=== PATIENT | female | born 1985 | race Caucasian/White ===

== ENCOUNTER 2020-07-25 12:13 | Emergency (ER) | payer OTHER, SELFPAY ==
--- NOTE | ~2020-07-25 | CT_ITS ---
EXAMINATION: CT ABDOMEN AND PELVIS WITHOUT CONTRAST CLINICAL INFORMATION: Severe right-sided flank pain radiating to the right lower quadrant. Vomiting. COMPARISON: 07/09/2015. TECHNIQUE: Multidetector volumetric imaging was performed from the superior aspect of the liver through the pubic symphysis. Sagittal and coronal reformatted images were obtained on the technologist's workstation. This CT examination was performed using dose optimization techniques as appropriate, variously including the following: *Automated exposure control *Adjustment of mA and/or kV according to patient size (this includes techniques or standardized protocols for targeted exams where dose is matched to indication/reason for exam; i.e. extremities or head) *Use of iterative reconstruction technique DLP: 735 mGy-cm FINDINGS: LUNG BASES: The visualized lung bases are unremarkable. LIVER, GALLBLADDER, AND BILIARY TREE: The liver is normal in size, shape, and attenuation. No focal hepatic lesion or biliary ductal dilatation is present. The gallbladder is unremarkable with no evidence of radiopaque gallstones, gallbladder wall thickening, or obvious pericholecystic inflammatory changes. PANCREAS: Unremarkable. SPLEEN: Unremarkable. ADRENAL GLANDS: Unremarkable. KIDNEYS AND URETERS: There is moderate right-sided hydronephrosis and mild hydroureter due to a 4 mm obstructing calculus at the right ureterovesical junction. This calcification has a density of 1108 Hounsfield units. There is mild periureteral fat stranding. No significant perinephric fat stranding. No additional renal or ureteral calculi are identified. Kidneys are normal in size with normal cortical thickness and contour. No lesions are identified on this unenhanced study. BLADDER: Partially filled. Normal wall thickness. No stones GASTROINTESTINAL TRACT: Stomach, small bowel, and colon are normal in caliber. No bowel wall thickening or surrounding inflammatory changes. Intramural fat deposition in the cecum, ascending colon, and transverse colon is a nonspecific finding. Appendix is normal. No intraperitoneal free fluid or free air. ABDOMINAL WALL: Tiny fat-containing umbilical hernia. No bowel involvement. LYMPH NODES: Normal. VASCULAR: Unremarkable. PELVIC VISCERA: Uterus is normal in size. No focal abnormalities are identified. No adnexal lesions. OSSEOUS STRUCTURES: No acute fracture or malalignment. 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 CT/CT abdomen pelvis wo con IMPRESSION: 1. Moderate right-sided hydronephrosis and mild hydroureter due to obstructive uropathy produced by a 4 mm calculus at the right ureterovesical junction. No additional nephrolithiasis. 2. Intramural fat deposition within the majority of the right hemicolon. This has an association with chronic bowel inflammation, though is more often an incidental finding of no clinical significance.
[2020-07-25 12:19] VITALS: BP 147/95; PULSE 52; RESP 18; TEMP 36.5; O2SAT 100; BMI 34.3
[2020-07-25 12:51] LABS: MANUAL DIFF FLAG NO
[2020-07-25] MEDS: 0.9 % Sodium Chloride 1,000 ML 999 ML IVCONT (12:51)
[2020-07-25 12:56] LABS: Basophils Percent Auto 0.4 % (0-2); Eosinophils Absolute Auto 0.2 X10*3/uL (0.0-0.4); Hematocrit 28.7 % (37-47); Hemoglobin 8.2 g/dl (12.0-16.0); Imm Gran Abs Auto 0.02 X10*3/uL (0.00-0.03); Imm Gran Pct Auto 0.3 % (0.0-0.4); Lymphocytes Absolute Auto 1.3 X10*3/uL (1.2-4.9); Lymphocytes Percent Auto 18.3 % (20-40); Mean Corpuscular HGB Conc 28.6 g/dl (31.0-35.0); Mean Corpuscular Hemoglobin 19.2 pg (27.0-33.0); Mean Corpuscular Volume 67.4 fL (80-98); Monocytes Absolute Auto 0.3 X10*3/uL (0.1-1.2); Neutrophils Absolute Auto 5.5 X10*3/uL (2.0-8.3); Platelet Count 384 X10*3/uL (160-400); Red Blood Count 4.26 X10*6/uL (4.20-5.50); Red Cell Distribution Width 17.2 % (11.0-16.0); White Blood Count 7.3 X10*3/uL (4.8-10.8)
--- NOTE | 2020-07-25 12:58 | ED_ITS ---
HPI - Abdominal Pain General Chief Complaint: Back Pain/Injury Stated Complaint: FLANK PAIN Time Seen by Provider: 07/25/20 12:18 Source: patient and EMS Mode of arrival: EMS Limitations: no limitations History of Present Illness HPI narrative: 35 y/o female with history of chronic anemia who presents with acute onset of severe right sided flank pain that started 3 hours [employer] when she was in the car driving to [place]. She told her mother to turn around and go to the hospital at home. Pain is 10/10, sharp in her right flank and radiates to her RLQ. She is on day 3 of her menstrual cycle which she states have been very heavy and with significant pain for a long time. She states the pain usually isnt this bad however. She denies fever, chills. She admits to mild dysuria and can't tell whether or not her urine has blood because of her menstrual flow. She denies history of kidney stones. MD elicited complaint: flank pain Pertinent past history: other (painful periods ) Onset (ago): hour(s) (3) Pain Consistency: colicky Location: R flank Severity: severe Pain scale (0-10): 10 Quality: sharp Radiation: RLQ Exacerbating factors: vomiting and movement Relieving factors: nothing Associated symptoms: nausea, vomiting and diarrhea (2 episodes, non-bloody) Treatments prior to arrival: NSAIDs and other (zofran) Related Data Date of Last Menstrual Period: 07/23/20 Patient : No Previous Rx's Medication Instructions Recorded ibuprofen 600 mg PO Q8H PRN #15 tab 07/25/20 oxycodone 5 mg PO Q6H PRN #5 tab 07/25/20 tamsulosin [Flomax] 0.4 mg PO DAILY #7 cap 07/25/20 Allergies Allergy/AdvReac Type Severity Reaction Status Date / Time Penicillins [PENICILLINS] Allergy Unknown HIVES Verified 07/25/20 12:52 Review of Systems Review of Systems Constitutional: No Fever, No Chills ENT/Mouth: No sore throat, No Rhinorrhea, No Swallowing Difficulty Cardiovascular: No Chest Pain, No SOB, No Orthopnea, No Edema Respiratory: No Cough, No Sputum, No Wheezing, No dyspnea Gastrointestinal: + Nausea, + Vomiting, + Diarrhea, + abdominal Pain, No Hematochezia, No Melena Genitourinary: + Dysuria, No Urinary Frequency, No Hematuria Musculoskeletal: No joint pain, No Myalgias Skin: No Skin Lesions, No rash Neuro: No Weakness, No Numbness, No Dizziness, + Headache Psych: + Anxiety/Panic, No Depression Heme/Lymph: No Bruising, No Lymphadenopathy Endocrine: No Polyuria, No Polydipsia Physical Exam Vital Signs: Vital Signs: Last Vital Signs Temp 97.5 F 07/25/20 16:00 Pulse 66 07/25/20 16:00 Resp 16 07/25/20 16:00 BP 131/86 07/25/20 16:00 Pulse Ox 99 07/25/20 16:00 Body Mass Index 34.3 Appearance: Alert. Oriented X3. No acute distress. Eyes: Pupils equal, round and reactive to light. ENT: Pharynx normal. Neck: Normal inspection. Neck supple. CVS: Normal heart rate and rhythm. Pulses normal. Respiratory: No respiratory distress. Breath sounds normal. Abdomen: Soft with RLQ tenderness. No rebound or guarding. +BS x4, +CVA tenderness on the right. Skin: Skin warm and dry. Normal skin color. Normal skin turgor. No rashes. Extremities: No lower extremity edema. Neuro: Oriented X 3. No motor deficit. No sensory deficit. Course Course Course Narrative: 35 y/o female presenting with acute onset of right sided flank pain, radiating to RLQ associated with vomiting. Concern for kidney stones, possible appendicitis, pyelonephritis, SBO. Will get labs, UA and CT scan for further assessment. Reevaluation(s) Reevaluation #1: CT scan showing moderate hydronephrosis w/ obstructive 4mm stone at UVJ. Case d/w Dr. Cole - patient will most likely pass on her own. Will give IV decadron for ureteral inflammation and Flomax. UA without signs of infection. Patient feels improved with Toradol. Reevaluation #2: Patient is tolerating PO. Her pain remains well controlled. She is stable for d/c with pain control and Urology follow up. Consultations Consultation #1: Urology - [facility] - Abdominal Pain Lab Data Result diagrams: 07/25/20 12:46 07/25/20 12:46 Labs: Lab Results 07/25/20 07/25/20 07/25/20 Range/Units 12:46 12:46 12:46 WBC 7.3 (4.8-10.8) X10*3/uL RBC 4.26 (4.20-5.50) X10*6/uL Hgb 8.2 L (12.0-16.0) g/dl Hct 28.7 L (37-47) % MCV 67.4 L (80-98) fL MCH 19.2 L (27.0-33.0) pg MCHC 28.6 L (31.0-35.0) g/dl RDW 17.2 H (11.0-16.0) % Plt Count 384 (160-400) X10*3/uL MPV 9.0 L (9.4-12.3) fL Immature Gran % (Auto) 0.3 (0.0-0.4) % Neut % (Auto) 75.0 H (45-73) % Lymph % (Auto) 18.3 L (20-40) % [place] % (Auto) 4.0 (2-11) % Eos % (Auto) 2.0 (0-4) % Baso % (Auto) 0.4 (0-2) % Lymph # (Auto) 1.3 (1.2-4.9) X10*3/uL [place] # (Auto) 0.3 (0.1-1.2) X10*3/uL Eos # (Auto) 0.2 (0.0-0.4) X10*3/uL Baso # (Auto) 0.0 (0.0-0.2) X10*3/uL Abs Immat Gran (auto) 0.02 (0.00-0.03) X10*3/uL Absolute Neuts (auto) 5.5 (2.0-8.3) X10*3/uL Absolute Nucleated RBC 0.000 (0.0-0.012) X10*3/uL Nucleated RBC % (auto) 0.0 (0.0-0.2) /100WBC Hold Blue Top SEE NOTE Sodium 138 (135-145) mmol/L Potassium 4.4 (3.3-5.1) mmol/L Chloride 108 (96-108) mmol/L Carbon Dioxide 18 L (22-29) mmol/L Anion Gap 16 (12-20) BUN 16 (9-16) mg/dL Creatinine 0.75 (0.5-1.4) mg/dL Estim Creat Clear Calc 114.2 Estimated GFR > 60 Random Glucose 124 H (60-115) mg/dL Calcium 8.7 (8.4-10.2) mg/dL Magnesium 2.0 (1.6-2.6) mg/dL Total Bilirubin 0.3 (0.0-1.0) mg/dL Direct Bilirubin < 0.2 (0.0-0.5) mg/dL AST 30 (5-31) U/L ALT 12 (0-31) U/L Alkaline Phosphatase 104 (39-117) U/L Total Protein 7.1 (6.5-8.0) g/dL Albumin 3.8 (3.5-5.0) g/dL Lipase 21 (8-78) U/L Urine Color Urine Appearance Urine pH (5.0-8.0) Ur Specific [place] (1.005-1.025) Urine Protein (NEG-TRACE) MG/DL Urine Glucose (UA) (NEG) MG/DL Urine Ketones (NEG) MG/DL Urine Blood (NEG) Urine Nitrite (NEG) Ur Leukocyte Esterase (NEG) Urine RBC (0) /HPF Urine WBC (0-4) /HPF Ur Squamous Epith Cells /LPF Urine Bacteria /LPF Urine Test (NEGATIVE) 07/25/20 07/25/20 Range/Units 15:48 15:48 WBC (4.8-10.8) X10*3/uL RBC (4.20-5.50) X10*6/uL Hgb (12.0-16.0) g/dl Hct (37-47) % MCV (80-98) fL MCH (27.0-33.0) pg MCHC (31.0-35.0) g/dl RDW (11.0-16.0) % Plt Count (160-400) X10*3/uL MPV (9.4-12.3) fL Immature Gran % (Auto) (0.0-0.4) % Neut % (Auto) (45-73) % Lymph % (Auto) (20-40) % [place] % (Auto) (2-11) % Eos % (Auto) (0-4) % Baso % (Auto) (0-2) % Lymph # (Auto) (1.2-4.9) X10*3/uL [place] # (Auto) (0.1-1.2) X10*3/uL Eos # (Auto) (0.0-0.4) X10*3/uL Baso # (Auto) (0.0-0.2) X10*3/uL Abs Immat Gran (auto) (0.00-0.03) X10*3/uL Absolute Neuts (auto) (2.0-8.3) X10*3/uL Absolute Nucleated RBC (0.0-0.012) X10*3/uL Nucleated RBC % (auto) (0.0-0.2) /100WBC Hold Blue Top Sodium (135-145) mmol/L Potassium (3.3-5.1) mmol/L Chloride (96-108) mmol/L Carbon Dioxide (22-29) mmol/L Anion Gap (12-20) BUN (9-16) mg/dL Creatinine (0.5-1.4) mg/dL Estim Creat Clear Calc Estimated GFR Random Glucose (60-115) mg/dL Calcium (8.4-10.2) mg/dL Magnesium (1.6-2.6) mg/dL Total Bilirubin (0.0-1.0) mg/dL Direct Bilirubin (0.0-0.5) mg/dL AST (5-31) U/L ALT (0-31) U/L Alkaline Phosphatase (39-117) U/L Total Protein (6.5-8.0) g/dL Albumin (3.5-5.0) g/dL Lipase (8-78) U/L Urine Color PINK Urine Appearance HAZY Urine pH 6.0 (5.0-8.0) Ur Specific [place] 1.015 (1.005-1.025) Urine Protein TRACE (NEG-TRACE) MG/DL Urine Glucose (UA) NEG (NEG) MG/DL Urine Ketones NEG (NEG) MG/DL Urine Blood 3+ H (NEG) Urine Nitrite NEG (NEG) Ur Leukocyte Esterase NEG (NEG) Urine RBC 15-29 H (0) /HPF Urine WBC 0 (0-4) /HPF Ur Squamous Epith Cells 1+ /LPF Urine Bacteria 1+ /LPF Urine Test NEGATIVE (NEGATIVE) Discharge Plan Discharge Clinical Impression: Hydronephrosis with renal calculous obstruction Patient Disposition: Home, Self-Care Instructions: Kidney Stones (ED) Additional Instructions: Your CT scan showed a kidney stone in the tube that drains your urine from the kidney to the bladder. Is it very close to passing on its own. Recommend increasing your oral hydration, drink plenty of water. Take the prescribed medications as directed. Follow up with Urology next week. If you have recurrent severe pain or persistent vomiting come back to the ER for further evaluation. Prescriptions: New ibuprofen 600 mg tablet 600 mg PO Q8H PRN (Reason: pain) Qty: 15 RF: 0 tamsulosin [Flomax] 0.4 mg capsule 0.4 mg PO DAILY Qty: 7 RF: 0 oxycodone 5 mg tablet 5 mg PO Q6H PRN (Reason: severe pain) Qty: 5 RF: 0 Referrals: Wilman Cole III, MD [Physician] - 2 days (obstructing kidney stone w/ moderate hydronephrosis) [facility] Past Medical History Medical History (Updated 07/25/20 @ 17:20 by DALLAS Almanzar) Anemia Date of Last Menstrual Period: 07/23/20 Social History Social History Advance Directives: No Advance Directives Information Provided: Yes
[2020-07-25] MEDS: Ketorolac Tromethamine 15 MG/ML VIAL IVPUSH (13:28)
[2020-07-25 13:43] LABS: Alanine Aminotransferase 12 U/L (0-31); Albumin Level 3.8 g/dL (3.5-5.0); Alkaline Phosphatase 104 U/L (39-117); Anion Gap 16 (12-20); Aspartate Amino Transferase 30 U/L (5-31); Bilirubin Direct < 0.2 mg/dL (0.0-0.5); Bilirubin Total 0.3 mg/dL (0.0-1.0); Blood Urea Nitrogen 16 mg/dL (9-16); Calcium 8.7 mg/dL (8.4-10.2); Carbon Dioxide 18 mmol/L (22-29); Chloride 108 mmol/L (96-108); Creatinine Clr Calc Pharmacy 114.2; Estimated Glomerular Filt Rate > 60; Glucose Random 124 mg/dL (60-115); Lipase 21 U/L (8-78); Potassium 4.4 mmol/L (3.3-5.1); Sodium 138 mmol/L (135-145); Total Protein 7.1 g/dL (6.5-8.0)
[2020-07-25 15:56] LABS: Appearance Urine HAZY; Color Urine PINK; Glucose Urine UA NEG (NEG); Leukocyte Esterase Urine NEG (NEG); Nitrite Urine NEG (NEG); Specific Gravity - Urine 1.015 (1.005-1.025); Urine Blood 3+ (NEG); Urine Ketones NEG (NEG); Urine Protein TRACE MG/DL (NEG-TRACE)
[2020-07-25 15:57] LABS: UPreg QC Valid YES; Urine Pregnancy NEGATIVE (NEGATIVE)
[2020-07-25 16:00] VITALS: BP 131/86; PULSE 66; RESP 16; TEMP 36.4; O2SAT 99
[2020-07-25 16:02] LABS: Bacteria Urine 1+ /LPF; Squamous Epithelial Cell Urine 1+ /LPF; WBC Urine 0 /HPF (0-4)
[2020-07-25] MEDS: Tamsulosin HCL 0.4 MG CAPSULE PO (16:52)
--- NOTE | 2020-07-25 16:53 | PC.NURSE ---
Pt medicated with IV steroids and po flomax
== END 2020-07-25 17:34 | disposition home or self-care (01) ==
PROVIDERS: Physician Assistant; Emergency Provider Emergency Medicine; PCP Internal Medicine
DX: N13.2 Hydronephrosis with renal and ureteral calculous obstruction (principal)
CPT/HCPCS: 36415; 74176; 80048; 80076; 81001; 81025; 83690; 83735; 85025; 96361; 96374; 96375; 96376; 99284; J1100; J1885

== ENCOUNTER → 2020-08-11 11:52 | Outpatient (BNVA) | payer OTHER, SELFPAY | PROVIDERS: PCP Internal Medicine; Visit Provider Urology ==

== ENCOUNTER 2022-12-08 20:53 | Emergency (ER) | payer OTHER, SELFPAY ==
--- NOTE | ~2022-12-08 | CT_ITS ---
EXAMINATION: CT ABDOMEN AND PELVIS WITHOUT CONTRAST CLINICAL INFORMATION: Right flank pain COMPARISON: 07/25/2020 TECHNIQUE: Multidetector volumetric imaging was performed from the superior aspect of the liver through the pubic symphysis. Sagittal and coronal reformatted images were obtained on the technologist's workstation. This CT examination was performed using dose optimization techniques as appropriate, variously including the following: *Automated exposure control *Adjustment of mA and/or kV according to patient size (this includes techniques or standardized protocols for targeted exams where dose is matched to indication/reason for exam; i.e. extremities or head) *Use of iterative reconstruction technique DLP: 739 mGy-cm FINDINGS: LUNG BASES: The visualized lung bases are unremarkable. LIVER, GALLBLADDER, AND BILIARY TREE: The liver is normal in size, shape, and attenuation. No focal hepatic lesion or biliary ductal dilatation is present. The gallbladder is unremarkable with no evidence of radiopaque gallstones, gallbladder wall thickening, or obvious pericholecystic inflammatory changes. PANCREAS: Unremarkable. SPLEEN: Unremarkable. ADRENAL GLANDS: Unremarkable. KIDNEYS AND URETERS: There is a 2 mm calculus within a right upper renal pole calyx and a punctate 1 mm calculus within a right lower pole calyx. No additional renal calculi identified. No appreciable ureteral calculi. No hydronephrosis or hydroureter. Kidneys are normal in size and contour without focal lesions. No perinephric stranding. BLADDER: Unremarkable. GASTROINTESTINAL TRACT: Stomach, small bowel, and colon are normal in caliber. No bowel wall thickening or surrounding inflammatory changes. Appendix is normal. No intraperitoneal free fluid or free air. Intrarenal fat deposition is again noted within the majority of the right hemicolon, unchanged. ABDOMINAL WALL: No significant hernia is appreciated. LYMPH NODES: Normal. VASCULAR: Unremarkable. PELVIC VISCERA: The uterus appears normal in size. No focal lesions are identified. Adnexa are unremarkable. OSSEOUS STRUCTURES: Minimal osteoarthritis in the hips and SI joints. No acute osseous findings. CT/CT abdomen pelvis wo IV con IMPRESSION: 1. No acute intra-abdominal or intrapelvic abnormalities. 2. Two small nonobstructing right renal calculi. No evidence of obstructive uropathy. Fleischner guidelines were followed.
[2022-12-08 21:12] VITALS: BP 154/100; PULSE 72; RESP 18; TEMP 37.1; O2SAT 99; BMI 34.3
[2022-12-08 21:34] LABS: MANUAL DIFF FLAG NO
[2022-12-08 21:37] LABS: Basophils Percent Auto 0.6 % (0-2); Eosinophils Absolute Auto 0.2 X10*3/uL (0.0-0.4); Eosinophils Percent Auto 3.6 % (0-4); Hematocrit 27.5 % (37.0-47.0); Hemoglobin 7.9 g/dl (12.0-16.0); Imm Gran Abs Auto 0.01 X10*3/uL (0.00-0.03); Imm Gran Pct Auto 0.2 % (0.0-0.4); Lymphocytes Absolute Auto 2.4 X10*3/uL (1.2-4.9); Lymphocytes Percent Auto 45.8 % (20-40); Mean Corpuscular HGB Conc 28.7 g/dl (31.0-35.0); Mean Corpuscular Hemoglobin 17.9 pg (27.0-33.0); Mean Platelet Volume 9.3 fL (9.4-12.3); Monocytes Absolute Auto 0.4 X10*3/uL (0.1-1.2); Neutrophils Absolute Auto 2.3 x10*3/uL (2.0-8.3); Neutrophils Percent Auto 42.8 % (45-73); Platelet Count 393 X10*3/uL (160-400); Red Blood Count 4.41 X10*6/uL (4.20-5.50); Red Cell Distribution Width 18.6 % (11.0-16.0); White Blood Count 5.3 X10*3/uL (4.8-10.8)
[2022-12-08 21:57] LABS: Mean Corpuscular Volume 62.4 fL (80.0-98.0)
[2022-12-08 22:08] LABS: Alanine Aminotransferase 9 U/L (0-31); Albumin Level 3.7 g/dL (3.5-5.0); Alkaline Phosphatase 95 U/L (39-117); Anion Gap 9 (12-20); Aspartate Amino Transferase 18 U/L (5-31); Bilirubin Total 0.2 mg/dL (0.0-1.0); Blood Urea Nitrogen 12 mg/dL (9-16); Calcium 9.5 mg/dL (8.4-10.2); Carbon Dioxide 23 mmol/L (22-29); Chloride 112 mmol/L (96-108); Glucose Random 104 mg/dL (60-115); Potassium 3.6 mmol/L (3.3-5.1); Sodium 140 mmol/L (135-145); Total Protein 6.9 g/dL (6.5-8.0)
[2022-12-08 22:27] VITALS: BP 162/91; PULSE 57; RESP 16; TEMP 36.8; O2SAT 100
[2022-12-08 22:32] LABS: Creatinine Clr Calc Pharmacy 131.2; Estimated Glomerular Filt Rate > 60
[2022-12-08 22:56] LABS: Appearance Urine Clear; Color Urine Yellow; Glucose Urine UA Negative (Negative); Leukocyte Esterase Urine Negative (Negative); Nitrite Urine Negative (Negative); UMIC TRIGGER UACC YES; Urine Blood Large (3+) (Negative); Urine Ketones Negative (Negative); Urine Protein Trace mg/dL (Neg-Trace)
[2022-12-08 22:57] LABS: UPreg QC Valid YES; Urine Pregnancy NEGATIVE (NEGATIVE)
[2022-12-08 23:01] LABS: Bacteria Urine None Seen (None Seen); Hyaline Casts Urine 0-2 /LPF (0-2); Squamous Epithelial Cell Urine 0-2 /HPF (0-2); WBC Urine 0-5 /HPF (0-5)
--- NOTE | 2022-12-08 23:58 | ED.GENADULT ---
[facility] - General Adult General Chief complaint: Abdominal Pain Stated complaint: right sided flank pain Time Seen by Provider: 12/08/22 22:31 Source: patient Mode of arrival: ambulatory History of Present Illness HPI narrative: 37-year-old female presents with complaints of right-sided posterior pain for 1 month that has not been associated with fever, chills, nausea, vomiting. Patient is concerned that she may have hematuria but then reports that she may be having her menstrual cycle. Related Data Previous Rx's Medication Instructions Recorded ibuprofen 600 mg tablet 600 mg PO Q8H PRN pain #15 tabs 07/25/20 oxycodone 5 mg tablet 5 mg PO Q6H PRN severe pain #5 tabs 07/25/20 tamsulosin 0.4 mg capsule (Flomax) 0.4 mg PO DAILY #7 caps 07/25/20 Allergies Allergy/AdvReac Type Severity Reaction Status Date / Time Penicillins [PENICILLINS] Allergy Unknown HIVES Verified 08/11/20 11:26 Review of Systems Review of Systems: Pertinent positives and negatives as stated in [facility] Past Medical History Source: nursing notes reviewed Medical History (Updated 12/09/22 @ 01:19 by Michelle Romero MD) Anemia Social History Social History Advance Directives: No Advance Directives Information Provided: No Physical Exam ED Vital Signs: Vital Signs - 24 hr 12/08/22 21:12 12/08/22 22:27 12/09/22 00:00 Temperature 98.7 F 98.3 F 98.2 F Pulse Rate 72 57 65 Respiratory Rate 18 16 18 Blood Pressure 154/100 H 162/91 H 168/94 H Pulse Oximetry 99 100 100 Oxygen Delivery Method Room Air Room Air Room Air BMI result Body Mass Index 34.3 VITAL SIGNS: Reviewed. GENERAL: Well developed, well nourished, in no acute distress. HEAD: Normocephalic/atraumatic EYES: PERRLA, EOMI EARS: Ext canals without abnormality NOSE: Nares patent bilateral OROPHARYNX: no oral lesions noted, posterior pharynx clear NECK: Supple, no adenopathy LUNGS: Normal breath sounds. No adventitious sounds or accessory muscle use. SpO2<100> CARDIOVASCULAR: Regular rate and rhythm without noted murmurs ABDOMEN: Soft, non-tender specifically no tenderness to palpation the right upper quadrant or epigastric, non-distended with bowel sounds, no CVA tenderness. MUSCULOSKELETAL: No tenderness, deformities, or effusions noted on gross inspection. EXTREMITIES: No cyanosis, clubbing or edema. SKIN: Inspection of the skin reveals no rashes NEUROLOGIC: Alert and oriented x 4. Strength and sensation to light touch were grossly intact x 4. Medications Administered Discontinued Medications Generic Name Dose Route Start Last Admin Trade Name Hugo PRN Reason Stop Dose Admin Acetaminophen 975 mg 12/08/22 23:58 12/09/22 00:25 Acetaminophen 325 Mg Tablet PO 12/08/22 23:59 975 mg ONCE ONE Administration Ibuprofen 400 mg 12/08/22 23:58 12/09/22 00:25 Ibuprofen 400 Mg Tablet PO 12/08/22 23:59 400 mg ONCE ONE Administration Lidocaine 1 patch 12/08/22 23:58 12/09/22 00:25 Lidocaine 4 % Patch Adh..Patch TRANSDERMA 12/08/22 23:59 1 patch ONCE ONE Administration Protocol Medical Decision Making Medical Decision Making [facility] Narrative: 37-year-old female with history and clinical presentation, DDX: Musculoskeletal, renal colic, low clinical suspicion for cholecystitis/pneumonia/pyelonephritis. I reviewed all investigations and patient's hematologic studies are chronically stable without leukocytosis or left shift and noted microcytic anemia without symptoms of dizziness/palpitations/shortness of breath. Chemistry indices are negative for electrolyte or liver enzyme abnormalities and there is no [place]. Urinalysis is significant for he hematuria that is likely menstrual in nature, urine test is negative and CT scan negative for evidence of renal colic and otherwise my interpretation is in agreement with radiology's impression. Differential Diagnosis Differential Diagnoses: The differential diagnosis associated with the presentation includes Please see the discussion above Admission/Observation Consideration of admission/observation: Escalation of care including admission/observation considered Please see the discussion above Lab Data [facility] Lab Attestation statement: I reviewed the patient's lab results. Please see the discussion above 12/08/22 21:27 12/08/22 21:27 Labs: Lab Results 12/08/22 12/08/22 Range/Units 21:27 22:48 WBC 5.3 (4.8-10.8) X10*3/uL RBC 4.41 (4.20-5.50) X10*6/uL Hgb 7.9 L (12.0-16.0) g/dl Hct 27.5 L (37.0-47.0) % MCV 62.4 L (80.0-98.0) fL MCH 17.9 L (27.0-33.0) pg MCHC 28.7 L (31.0-35.0) g/dl RDW 18.6 H (11.0-16.0) % Plt Count 393 (160-400) X10*3/uL MPV 9.3 L (9.4-12.3) fL Immature Gran % (Auto) 0.2 (0.0-0.4) % Neut % (Auto) 42.8 L (45-73) % Lymph % (Auto) 45.8 H (20-40) % [place] % (Auto) 7.0 (2-11) % Eos % (Auto) 3.6 (0-4) % Baso % (Auto) 0.6 (0-2) % Lymph # (Auto) 2.4 (1.2-4.9) X10*3/uL [place] # (Auto) 0.4 (0.1-1.2) X10*3/uL Eos # (Auto) 0.2 (0.0-0.4) X10*3/uL Baso # (Auto) 0.0 (0.0-0.2) X10*3/uL Abs Immat Gran (auto) 0.01 (0.00-0.03) X10*3/uL Absolute Neuts (auto) 2.3 (2.0-8.3) x10*3/uL Absolute Nucleated RBC 0.000 (0.0-0.012) X10*3/uL Nucleated RBC % (auto) 0.0 (0.0-0.2) /100WBC Sodium 140 (135-145) mmol/L Potassium 3.6 (3.3-5.1) mmol/L Chloride 112 H (96-108) mmol/L Carbon Dioxide 23 (22-29) mmol/L Anion Gap 9 L (12-20) BUN 12 (9-16) mg/dL Creatinine 0.64 (0.5-1.4) mg/dL Estim Creat Clear Calc 131.2 Estimated GFR > 60 Random Glucose 104 (60-115) mg/dL Calcium 9.5 D (8.4-10.2) mg/dL Total Bilirubin 0.2 (0.0-1.0) mg/dL AST 18 (5-31) U/L ALT 9 (0-31) U/L Alkaline Phosphatase 95 (39-117) U/L Total Protein 6.9 (6.5-8.0) g/dL Albumin 3.7 (3.5-5.0) g/dL Urine Color Yellow Urine Appearance Clear Urine pH 6.0 (5.0-9.0) Ur Specific Delta 1.020 (1.005-1.025) Urine Protein Trace (Neg-Trace) mg/dL Urine Glucose (UA) Negative (Negative) mg/dL Urine Ketones Negative (Negative) mg/dL Urine Blood Large (3+) H (Negative) Urine Nitrite Negative (Negative) Ur Leukocyte Esterase Negative (Negative) Urine RBC 11-20 H (0-2) /HPF Urine WBC 0-5 (0-5) /HPF Ur Squamous Epith Cells 0-2 (0-2) /HPF Urine Bacteria None Seen (None Seen) Hyaline Casts 0-2 (0-2) /LPF Urine Test NEGATIVE (NEGATIVE) Radiology Impression Discussion of test interpretation with radiology: I have reviewed the radiologist's reading. Radiologist Impression: Please see the discussion above External Record Review External record reviewed: Outpatient record, Prior outpatient labs and Prior outpatient radiology Discharge Plan Discharge Clinical Impression: Musculoskeletal pain, Anemia Patient Disposition: Home, Self-Care Instructions: Musculoskeletal Pain (ED), Anemia (ED) Additional Instructions: 1. Resume all home medications as prescribed. 2. I recommend [id number] Tylenol/ibuprofen as needed for pain control, please consider [id number] lidocaine patch as well. 3. There is no evidence of kidney stones and no findings to suggest gallbladder problems. 4. Please follow-up with your primary care provider for re-evaluation. Prescriptions: No Action ibuprofen 600 mg tablet 600 mg PO Q8H PRN (Reason: pain) Qty: 15 0RF tamsulosin [Flomax] 0.4 mg capsule 0.4 mg PO DAILY Qty: 7 0RF oxycodone 5 mg tablet 5 mg PO Q6H PRN (Reason: severe pain) Qty: 5 0RF
[2022-12-09] VITALS: BP 168/94; PULSE 65; RESP 18; TEMP 36.8; O2SAT 100
[2022-12-09] MEDS: Lidocaine 4 % Patch ADH..PATCH 1 PATCH TRANSDERMA (00:25)
[2022-12-09] MEDS: Acetaminophen 325 MG TABLET 975 MG PO (00:25)
[2022-12-09] MEDS: Ibuprofen 400 MG TABLET PO (00:25)
== END 2022-12-09 01:55 | disposition home or self-care (01) ==
PROVIDERS: Emergency Provider Student in an Organized Health Care Education/Training Program
DX: M79.10 Myalgia, unspecified site (principal); D64.9 Anemia, unspecified; R10.2 Pelvic and perineal pain; Z79.899 Other long term (current) drug therapy
CPT/HCPCS: 36415; 74176; 80053; 81001; 81025; 85025; 99283; 99284

== ENCOUNTER 2024-06-21 21:06 | Emergency (ER) | payer OTHER, SELFPAY ==
--- NOTE | 2024-06-21 | ECG_ITS ---
Test Reason : DIZZINESS Blood Pressure : */* mmHG Vent. Rate : 92 BPM Atrial Rate : 92 BPM P-R Int : 142 ms QRS Dur : 74 ms QT Int : 356 ms P-R-T Axes : 43 23 73 degrees QTcB Int : 440 ms Normal sinus rhythm Normal ECG When compared with ECG of 08-Jan-2018 17:58, Nonspecific T wave abnormality now evident in Lateral leads Referred By: Generic ED Physician Electronically Signed By: Zaki Zavala
[2024-06-21 21:09] VITALS: BP 146/104; PULSE 101; RESP 18; TEMP 36.8; O2SAT 100; BMI 36.8
[2024-06-21 21:39] LABS: Hematocrit 28.4 % (37.0-47.0); Hemoglobin 8.3 g/dl (12.0-16.0); Mean Corpuscular HGB Conc 29.2 g/dl (31.0-35.0); Mean Corpuscular Hemoglobin 18.8 pg (27.0-33.0); Mean Platelet Volume 9.1 fL (9.4-12.3); Platelet Count 437 X10*3/uL (160-400); Red Blood Count 4.42 X10*6/uL (4.20-5.50); Red Cell Distribution Width 19.5 % (11.0-16.0); White Blood Count 6.6 X10*3/uL (4.8-10.8)
[2024-06-21 21:43] LABS: Mean Corpuscular Volume 64.3 fL (80.0-98.0)
[2024-06-21 21:52] LABS: COVID-19 Test Negative (Negative); IDNOW Serial# 55D5AD1C
[2024-06-21 21:55] LABS: Alanine Aminotransferase 12 U/L (0-31); Albumin Level 3.6 g/dL (3.5-5.0); Alkaline Phosphatase 88 U/L (39-117); Anion Gap 11 (12-20); Aspartate Amino Transferase 18 U/L (5-31); Bilirubin Total 0.3 mg/dL (0.0-1.0); Blood Urea Nitrogen 16 mg/dL (9-16); Calcium 8.7 mg/dL (8.4-10.2); Carbon Dioxide 21 mmol/L (22-29); Chloride 110 mmol/L (96-108); Creatinine Clr Calc Pharmacy 133.6; Estimated Glomerular Filt Rate > 60; Glucose Random 112 mg/dL (60-115); Magnesium 1.9 mg/dL (1.6-2.6); Potassium 3.8 mmol/L (3.3-5.1); Sodium 138 mmol/L (135-145); Total Protein 7.3 g/dL (6.5-8.0)
[2024-06-21 22:11] LABS: IDNOW Serial# 55D5AD1C; Influenza A Negative (Negative); Influenza B2 Negative (Negative)
[2024-06-22 01:40] VITALS: BP 124/73; PULSE 92; RESP 20; TEMP 36.9; O2SAT 98
[2024-06-22 02:59] VITALS: BP 149/86; PULSE 93; RESP 16; TEMP 36.9; O2SAT 98
--- NOTE | 2024-06-22 05:12 | ED.DIZZY ---
HPI - Dizziness General Chief Complaint: Dizziness Stated Complaint: Dizziness Time Seen by Provider: 06/22/24 05:12 Source: patient Mode of arrival: ambulatory Limitations: no limitations History of Present Illness ED Provider: HPI Narrative: Patient's history of chronic iron-deficiency anemia secondary to dysfunctional uterine bleed menstruation lasting for about 7-10 days patient did not take any iron pills for a while feels dizzy lightheaded especially on ambulation for long time dizziness does not get worse on had movements no vertiginous feeling no nausea no vomiting no chest pain patient does get exertional shortness a breath and easy tiredness, getting worse now plan to see finishing powder press operator in near future patient has had previous CT scans and ultrasound in the past no significant mass noticed in the uterus patient has not seen a finishing powder press operator yet Related Data Previous Rx's ?Medication ?Instructions ?Recorded ibuprofen 600 mg tablet 600 mg PO Q8H PRN pain #15 tabs 07/25/20 oxycodone 5 mg tablet 5 mg PO Q6H PRN severe pain #5 tabs 07/25/20 tamsulosin 0.4 mg capsule (Flomax) 0.4 mg PO DAILY #7 caps 07/25/20 ferrous sulfate 324 mg (65 mg 324 mg PO DAILY #90 tabs 06/22/24 iron) tablet,delayed release Allergies Allergy/AdvReac Type Severity Reaction Status Date / Time Penicillins [PENICILLINS] Allergy Unknown HIVES Verified 06/21/24 21:13 Review of Systems Review of Systems: Yes all other systems are reviewed and are negative PMFSH Past Medical History Medical History (Updated 06/22/24 @ 06:46 by Job Ramirez MD) DUB (dysfunctional uterine bleeding) Anemia Social History Social History Smoked in Last 30 Days: No Use of substances other than those prescribed or required for medical reasons: No Advance Directives: No Advance Directives Information Provided: No Patient : No Physical Exam Vital Signs: Vital Signs: Last Vital Signs Temp 98.1 F 06/22/24 05:53 Pulse 106 H 06/22/24 05:53 Resp 17 06/22/24 05:53 BP 142/92 H 06/22/24 05:53 Pulse Ox 98 06/22/24 05:53 O2 Del Method Room Air 06/22/24 05:53 BMI result Body Mass Index 36.8 Appearance: Alert. Oriented X3. No acute distress. Eyes: Pallor++ ENT: Pharynx normal. Oral Mucosa moist Neck: Normal inspection. Neck supple. CVS: Normal heart rate and rhythm. Pulses normal. Respiratory: No respiratory distress. Equal air entry bilateral, no wheezing/rales/rhonchi Abdomen: Soft and nontender. Bowel sounds are present, no mass palpable, no CVA tenderness Skin: Skin warm and dry. Normal skin color. Normal skin turgor. Extremities: No lower extremity edema. No calf tenderness Neuro: Oriented X 3. No motor deficit. Medications Administered Discontinued Medications Generic Name Dose Route Start Last Admin Trade Name Freq PRN Reason Stop Dose Admin Ferrous Sulfate 324 mg 06/22/24 05:24 06/22/24 05:34 Ferrous Sulfate 324 Mg Tablet.Dr ALLEN 06/22/24 05:25 324 mg ONCE ONE Administration Medical Decision Making Medical Decision Making [facility] Narrative: Patient with chronic anemia hemoglobin about 8 in the past today was 8.3 with hematocrit of 28.4 orthostatics are normal patient will be prescribed ferrous sulfate advised to take it daily iron studies were done which showed low-level of iron Differential Diagnosis Differential Diagnoses: The differential diagnosis associated with the presentation includes Lab Data [facility] Lab Attestation statement: I reviewed the patient's lab results. 06/21/24 21:27 06/21/24 21:27 Labs: Lab Results 06/21/24 Range/Units 21:27 WBC 6.6 (4.8-10.8) X10*3/uL RBC 4.42 (4.20-5.50) X10*6/uL Hgb 8.3 L (12.0-16.0) g/dl Hct 28.4 L (37.0-47.0) % MCV 64.3 L (80.0-98.0) fL MCH 18.8 L (27.0-33.0) pg MCHC 29.2 L (31.0-35.0) g/dl RDW 19.5 H (11.0-16.0) % Plt Count 437 H (160-400) X10*3/uL MPV 9.1 L (9.4-12.3) fL Absolute Nucleated RBC 0.000 (0.0-0.012) X10*3/uL Nucleated RBC % (auto) 0.0 (0.0-0.2) /100WBC Sodium 138 (135-145) mmol/L Potassium 3.8 (3.3-5.1) mmol/L Chloride 110 H (96-108) mmol/L Carbon Dioxide 21 L (22-29) mmol/L Anion Gap 11 L (12-20) BUN 16 (9-16) mg/dL Creatinine 0.64 (0.5-1.4) mg/dL Estim Creat Clear Calc 133.6 Estimated GFR > 60 Random Glucose 112 (60-115) mg/dL Calcium 8.7 D (8.4-10.2) mg/dL Magnesium 1.9 (1.6-2.6) mg/dL Iron 34 (30-160) mcg/dL TIBC 338 (228-428) mcg/dL % Saturation 10 L (15-50) % Unsat Iron Binding 304 ug/dL Total Bilirubin 0.3 (0.0-1.0) mg/dL AST 18 (5-31) U/L ALT 12 (0-31) U/L Alkaline Phosphatase 88 (39-117) U/L Total Protein 7.3 (6.5-8.0) g/dL Albumin 3.6 (3.5-5.0) g/dL COVID-19 (JESSE) Negative (Negative) COVID-19 Clin Com See Note Influenza Type A (JUDITH) Negative (Negative) Influenza Type B (JUDITH) Negative (Negative) Influenza A & B Note See Note Independent Interpretation I performed an independent interpretation of an: EKG Interpretation: Normal sinus rhythm heart rate sent 92 beats per minute normal intervals normal axis no acute STT wave changes no acute ischemia Discharge Plan Discharge Clinical Impression: Chronic iron deficiency anemia Patient Disposition: Home, Self-Care Instructions: Iron Rich Diet (ED), Iron Deficiency Anemia (ED) Additional Instructions: Start taking iron pills daily Follow up with your finishing powder press operator Prescriptions: New ferrous sulfate 324 mg (65 mg iron) tablet,delayed release (DR/EC) 324 mg PO DAILY Qty: 90 3RF No Action ibuprofen 600 mg tablet 600 mg PO Q8H PRN (Reason: pain) Qty: 15 0RF tamsulosin [Flomax] 0.4 mg capsule 0.4 mg PO DAILY Qty: 7 0RF oxycodone 5 mg tablet 5 mg PO Q6H PRN (Reason: severe pain) Qty: 5 0RF Interventions: ED Discharge Assessment Last Done: 06/22/24 05:53 Discharge Date/Time: 06/22/24 05:54 Print Language: [place]orese
[2024-06-22 05:27] VITALS: BP 128/72; PULSE 85
[2024-06-22 05:28] VITALS: BP 138/72; PULSE 98
[2024-06-22 05:30] VITALS: BP 142/92; PULSE 106
[2024-06-22] MEDS: Ferrous Sulfate 324 MG TABLET.DR PO (05:34)
[2024-06-22 05:41] LABS: Iron 34 mcg/dL (30-160); Percent Iron Saturation 10 % (15-50); Total Iron Binding Capacity 338 mcg/dL (228-428); Unsaturated Iron Binding 304 ug/dL
[2024-06-22 05:53] VITALS: BP 142/92; PULSE 106; RESP 17; TEMP 36.7; O2SAT 98
== END 2024-06-22 05:54 | disposition home or self-care (01) ==
PROVIDERS: Emergency Provider Internal Medicine
DX: D50.9 Iron deficiency anemia, unspecified (principal); R42 Dizziness and giddiness; Z03.818 Encounter for observation for suspected exposure to other biological agents ruled out; N93.8 Other specified abnormal uterine and vaginal bleeding; Z79.899 Other long term (current) drug therapy
CPT/HCPCS: 80053; 83540; 83735; 85027; 87502; 87635; 93005; 99283; 99284

== ENCOUNTER → 2024-06-21 21:23 | Outpatient (BNV) | payer OTHER, SELFPAY | PROVIDERS: Emergency Provider Internal Medicine; Visit Provider Internal Medicine Cardiovascular Disease | DX: R42 Dizziness and giddiness (principal) | CPT/HCPCS: 93010 ==

== ENCOUNTER 2025-02-18 15:53 | Emergency (ER) | payer OTHER, SELFPAY ==
--- NOTE | ~2025-02-18 | XR_ITS ---
EXAMINATION: XR RIBS, RIGHT CLINICAL INFORMATION: fall COMPARISON: None available. TECHNIQUE: Frontal chest x-ray and 3 views of the right ribs were obtained. FINDINGS: Heart and mediastinal contours are within normal limits. Lungs are clear and well expanded. There is no sign of pleural effusion. No pneumothorax is identified. No fracture line, cortical step-off, or deformity is noted in the right ribs. XR/XR ribs RT min 3V w CXR1V IMPRESSION: Unremarkable examination. Electronically signed by: Daryl Burris MD 02/18/2025 04:37 PM EST
[2025-02-18 15:56] VITALS: BP 183/101; PULSE 95; RESP 18; TEMP 36.6; O2SAT 99; BMI 32.4
--- NOTE | 2025-02-18 15:56 | ED_ITS ---
HPI - Fall General Chief Complaint: Fall Stated Complaint: Injury Time Seen by Provider: 02/18/25 20:23 Source: patient Mode of arrival: ambulatory Limitations: no limitations History of Present Illness ED Provider: Vivian Packer PA-C HPI Narrative: 39-year-old female with a history of hypertension who presented to the ED after a mechanical fall 2 days ago. She experienced an episode of dizziness at the time of the fall but denies any further dizziness since. Denies head injury. Reports localized pain along the left rib/upper abdominal region, which occurs and worsens specifically when she feels full (after eating or with fullness), and with movement. She has been off her prescribed blood-pressure medication for approximately one month. On arrival to the ED, blood pressure was 183/101 mmHg; repeat without intervention was 171/104 mmHg. States she ?feels good overall? aside from the rib/abdominal discomfort. Review of Systems: ? Constitutional: Denies current dizziness, fever, or chills. ? Cardiovascular: No current chest pain reported. ? Respiratory: Denies shortness of breath. ? Gastrointestinal: Positive for left upper abdominal/rib pain, which occurs and worsens specifically when she feels full (after eating or with fullness). ? Neurologic: Denies loss of consciousness or head trauma with fall. Related Data Previous Rx's ?Medication ?Instructions ?Recorded ibuprofen 600 mg tablet 600 mg PO Q8H PRN pain #15 t abs 07/25/20 oxycodone 5 mg tablet 5 mg PO Q6H PRN severe pain #5 tabs 07/25/20 tamsulosin 0.4 mg capsule (Flomax) 0.4 mg PO DAILY #7 caps 07/25/20 ferrous sulfate 324 mg (65 mg 324 mg PO DAILY #90 tabs 06/22/24 iron) tablet,delayed release cyclobenzaprine 5 mg tablet 5 mg PO TID PRN muscle spa sm #15 02/18/25 tabs lidocaine 5 % topical patch 1 patch topical DAILY #30 ea 02/18/25 (Lidoderm) Allergies Allergy/AdvReac Type Severity Reaction Status Date / Time Penicillins (PENICILLINS) Allergy Unknown HIVES Verified 02/18/25 15:57 Review of Systems 2 Review of Systems: Yes all other systems are reviewed and are negative PMFSH Past Medical History Attestation statement: The following information was validated with the patient. Source: old records reviewed, obtained from family and nursing notes reviewed Medical History DUB (dysfunctional uterine bleeding) Anemia Social History Social History Advance Directives: No Advance Directives Information Provided: No Do you have a plan to hurt others: No Plan Physical Exam 2 Vital Signs: Vital Signs: Last Vital Signs Temp 99.2 F 02/18/25 19:04 Pulse 84 02/18/25 19:04 Resp 20 02/18/25 19:04 BP 171/104 H 02/18/25 19:04 Pulse Ox 100 02/18/25 19:04 O2 Del Method Room Air 02/18/25 19:04 BMI result Body Mass Index 32.4 Course Course Course Narrative: This is an RME: Additional HPI, ROS, PE not included below will be deferred to primary provider. RME assessment and note performed by: Anais Mcghee PA-C This is a 69-yyti-zzo-female, with a hx of HTN, who presents to the ER with a complaint of right rib pain s/p fall. Reports that she got out of her vehicle and felt dizzy and tripped over a curb. Reports that she landed onto her right ribs and abdominal region. Reports no other episodes of dizziness since. No head strike or LOC. Patient has no tenderness palpation within the abdomen, she does have tenderness palpation along the anterior ribs. Plan: Labs, EKG, xr ribs Medical Decision Making Lab Data 02/18/25 16:43 02/18/25 16:43 Labs: Lab Results 02/18/25 Range/Units 16:43 WBC 5.1 (4.8-10.8) X10*3/uL RBC 4.68 (4.20-5.50) X10*6/uL Hgb 8.9 L (12.0-16.0) g/dl Hct 30.9 L (37.0-47.0) % MCV 66.0 L (80.0-98.0) fL MCH 19.0 L (27.0-33.0) pg MCHC 28.8 L (31.0-35.0) g/dl RDW 19.0 H (11.0-16.0) % Plt Count 385 (160-400) X10*3/uL MPV 8.1 L (9.4-12.3) fL Immature Gran % (Auto) 0.2 (0.0-0.4) % Neut % (Auto) 48.8 (45-73) % Lymph % (Auto) 36.3 (20-40) % Bennett % (Auto) 9.6 (2-11) % Eos % (Auto) 4.3 H (0-4) % Baso % (Auto) 0.8 (0-2) % Lymph # (Auto) 1.9 (1.2-4.9) X10*3/uL Bennett # (Auto) 0.5 (0.1-1.2) X10*3/uL Eos # (Auto) 0.2 (0.0-0.4) X10*3/uL Baso # (Auto) 0.0 (0.0-0.2) X10*3/uL Abs Immat Gran (auto) 0.01 (0.00-0.03) X10*3/uL Absolute Neuts (auto) 2.5 (2.0-8.3) x10*3/uL Absolute Nucleated RBC 0.000 (0.0-0.012) X10*3/uL Nucleated RBC % (auto) 0.0 (0.0-0.2) /100WBC Sodium 141 (135-145) mmol/L Potassium 3.4 (3.3-5.1) mmol/L Chloride 108 (96-108) mmol/L Carbon Dioxide 24 (22-29) mmol/L Anion Gap 12 (12-20) BUN 14 (9-16) mg/dL Creatinine 0.70 (0.5-1.4) mg/dL Estim Creat Clear Calc 114.2 Estimated GFR > 60 Random Glucose 102 (60-115) mg/dL Calcium 9.1 (8.4-10.2) mg/dL Magnesium 1.9 (1.6-2.6) mg/dL Total Bilirubin 0.2 (0.0-1.0) mg/dL Direct Bilirubin < 0.2 (0.0-0.5) mg/dL AST 22 (5-31) U/L ALT 16 (0-31) U/L Alkaline Phosphatase 110 (39-117) U/L Troponin I High Sens < 2.7 (<3.5-17.0) ng/L Total Protein 7.2 (6.5-8.0) g/dL Albumin 4.0 (3.5-5.0) g/dL Beta HCG, Quant < 2 mIU/mL Discharge Plan Discharge Clinical Impression: Contusion of rib on right side Patient Disposition: Home, Self-Care Instructions: Chest Contusion (ED) Additional Instructions: ED Discharge Summary Discharge Summary Patient: 39-year-old female Diagnosis: Mechanical fall with rib pain, uncontrolled hypertension (medication non-adherence), baseline microcytic anemia Hospital Course: - Presented to ED after mechanical fall with dizziness and left rib pain. - No loss of consciousness or head trauma. - Vitals: BP 71/104 mmHg, HR 95 bpm, afebrile, SpO? 99%. - Physical exam: Localized left rib tenderness, no deformity. - Labs: Microcytic anemia (Hgb 8.9, Hct 30.9), otherwise unremarkable. - Chest X-ray: No acute injury. - Treated symptomatically with muscle relaxants and topical pain patches. - Counseled on deep breathing exercises to prevent atelectasis. - No transfusion indicated; anemia stable. Discharge Condition: - Ambulatory, hemodynamically stable, pain controlled, no acute injury identified. Follow-up Instructions: - Hypertension: Resume prescribed antihypertensive medication. Schedule prompt follow-up with primary care for medication management, adherence counseling, and home BP monitoring. Written instructions provided to reinforce education. - Rib Pain: Continue muscle relaxant and pain patches as directed. Perform deep breathing exercises daily. Expect discomfort for up to 1 month; return for worsening pain, dyspnea, or new symptoms. - Anemia: Arrange outpatient evaluation for microcytic anemia with primary care. No transfusion required at this time. - General: Written discharge instructions provided. Return to ED for new or worsening symptoms. Care Coordination: - Medication reconciliation completed. - Patient educated on diagnosis, treatment plan, and follow-up needs. - Outpatient follow-up emphasized for hypertension and anemia management. Prescriptions: New lidocaine [Lidoderm] 5 % adhesive patch,medicated 1 patch topical DAILY Qty: 30 0RF Rx Instructions: leave on most painful area for up to 12 hrs cyclobenzaprine 5 mg tablet 5 mg PO TID PRN (Reason: muscle spasm) Qty: 15 0RF No Action ibuprofen 600 mg tablet 600 mg PO Q8H PRN (Reason: pain) Qty: 15 0RF tamsulosin [Flomax] 0.4 mg capsule 0.4 mg PO DAILY Qty: 7 0RF oxycodone 5 mg tablet 5 mg PO Q6H PRN (Reason: severe pain) Qty: 5 0RF ferrous sulfate 324 mg (65 mg iron) tablet,delayed release (DR/EC) 324 mg PO DAILY Qty: 90 3RF Print Language: Moldovan
--- NOTE | 2025-02-18 16:00 | ECG_ITS ---
Test Reason : ABD PAIN Blood Pressure : */* mmHG Vent. Rate : 89 BPM Atrial Rate : 89 BPM P-R Int : 144 ms QRS Dur : 84 ms QT Int : 384 ms P-R-T Axes : 55 42 69 degrees QTcB Int : 467 ms Normal sinus rhythm Normal ECG When compared with ECG of 21-Jun-2024 21:23, No significant change was found Referred By: Anais Mcghee Electronically Signed By: JADE HOOKS
[2025-02-18 16:48] LABS: Hematocrit 30.9 % (37.0-47.0); Hemoglobin 8.9 g/dl (12.0-16.0); Imm Gran Abs Auto 0.01 X10*3/uL (0.00-0.03); Imm Gran Pct Auto 0.2 % (0.0-0.4); Lymphocytes Absolute Auto 1.9 X10*3/uL (1.2-4.9); MANUAL DIFF FLAG NO; Mean Corpuscular HGB Conc 28.8 g/dl (31.0-35.0); Mean Corpuscular Hemoglobin 19.0 pg (27.0-33.0); Mean Corpuscular Volume 66.0 fL (80.0-98.0); NRBC Abs Auto 0.000 X10*3/uL (0.0-0.012); NRBC Pct Auto 0.0 /100WBC (0.0-0.2); Platelet Count 385 X10*3/uL (160-400); Red Blood Count 4.68 X10*6/uL (4.20-5.50); White Blood Count 5.1 X10*3/uL (4.8-10.8)
[2025-02-18 17:12] LABS: Alanine Aminotransferase 16 U/L (0-31); Albumin Level 4.0 g/dL (3.5-5.0); Alkaline Phosphatase 110 U/L (39-117); Anion Gap 12 (12-20); Aspartate Amino Transferase 22 U/L (5-31); Blood Urea Nitrogen 14 mg/dL (9-16); Calcium 9.1 mg/dL (8.4-10.2); Carbon Dioxide 24 mmol/L (22-29); Chloride 108 mmol/L (96-108); Creatinine Clr Calc Pharmacy 114.2; Estimated Glomerular Filt Rate > 60; Magnesium 1.9 mg/dL (1.6-2.6); Potassium 3.4 mmol/L (3.3-5.1); Sodium 141 mmol/L (135-145); Total Protein 7.2 g/dL (6.5-8.0)
[2025-02-18 17:14] LABS: Troponin-I High Sensitivity < 2.7 ng/L (<3.5-17.0)
[2025-02-18 19:04] VITALS: BP 171/104; PULSE 84; RESP 20; TEMP 37.3; O2SAT 100
[2025-02-18 21:37] VITALS: BP 171/104; PULSE 84; RESP 20; TEMP 37.3; O2SAT 100
--- OUTSIDE RECORDS SUMMARY | 2025-02-19 13:48 | XMS_ITS | Clinical Summary ---
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 In Name Role Phone Unavailable Primary Care Provider Unavailabl e Social History Tobacco Use Types Packs/Day Years Used Date Smoking Tobacco: Never Assessed Comments Unknown Sex and Gender Information Value Date Recorded Sex Assigned at Female 08/23/2024 12:47 PM EDT Legal Sex Female 8:05 PM EDT Gender Identity Female 08/23/2024 12:47 PM EDT Sexual Orientation Straight 08/23/2024 12 :47 PM EDT Plan of Treatment Health Maintenance Due Date Last Done Comments Depression Screening 1985 HIV Screening 1985 SDOH Screening 1985 Disability Screening 1985 Alcohol/Substance Use Screening 1997 Tobacco Screening 1997 Family Planning (PISQ) 2000 HPV Vaccines (1 - 3-dose series) 2000 Hepatitis C Screening 06/07/2003 Hepatitis B Vaccines (1 of 3 - 19+ 3-dose series) 2004 Pap Smear 2006 Cervical Cancer Screening 06/07/2015 HPV/Cotest 06/07/2015 DTaP/Tdap/Td Vaccines (1 - Tdap) 05/12/2017 05/11/2017 COVID-19 Vaccine (3 - 2024-2 6 season) 2024 09/25/2020, 08/27/2020 Influenza Vaccine (#1) 2024 Zoster Vaccines (1 of 2) 06/07/2035 RSV Patients and Patients Aged 60 years or older (1 - 1-dose 75+ series) 2060 HIB Vaccines Aged Out No longer eligi ble based on patient's age to complete this topic Hepatitis A Vaccines Aged Out No long er eligible based on patient's age to complete this topic IPV Vaccines Aged Out No longer eligi ble based on patient's age to complete this topic Meningococcal B Vaccine Aged Out No l onger eligible based on patient's age to complete this topic Meningococcal Vaccine Aged Out No cedric ariel eligible based on patient's age to complete this topic Pneumococcal Vaccine: Pediatrics (0 to 5 Years) and At-Risk Patients (6 to 49) Years Aged Out No longer eligible b ased on patient's age to complete this topic RSV under 20 months Aged Out No longe r eligible based on patient's age to complete this topic Rotavirus Vaccines Aged Out No longer eligible based on patient's age to complete this topic Insurance [facility]
--- OUTSIDE RECORDS SUMMARY | 2025-02-19 13:49 | XMS_ITS | Clinical Summary ---
Author Organization [facility] Address [address] [place] [address] Phone Care Team Providers Care Manager Council Name Role Phone Physician, No Pcp Primary Care Provider Unavaila ble Allergies Active Allergy Reactions Criticality Noted Date Comments Penicillins Swelling 06/11/2024 Medications dexAMETHasone (DECADRON) 4 mg tablet Take 1 tablet (4 mg total) by mouth 1 (one) time each day for 5 days. 5 each 06/11/2024 Active Social History Tobacco Use Types Packs/Day Years Used Date Smoking Tobacco: Never Assessed Comments Unknown Sex and Gender Information Value Date Recorded Sex Assigned at Not on file Legal Sex Female 7:51 PM EDT Gender Identity Not on file Sexual Orientation Not on file Obstetrics History Last Filed Vital Signs Vital Sign Reading Time Taken Comments Blood Pressure 132/90 06/11/2024 8:16 PM EDT Pulse 98 06/11/2024 8:16 PM EDT Temperature 37 C (98.6 F) 06/11/2024 8:16 PM EDT Respiratory Rate 18 06/11/2024 8:16 PM EDT Oxygen Saturation 99% 06/11/2024 8:16 PM EDT Inhaled Oxygen Concentration - - Weight 86.2 kg (190 lb) 06/11/2024 8:16 PM EDT Height 162.6 cm (5' 4 ) 06/11/2024 8:16 PM EDT Body Mass Index 32.61 06/11/2024 8:16 PM EDT Plan of Treatment Health Maintenance Due Date Last Done Comments DTaP,Tdap,and Td Vaccines (1 - Tdap) 2004 Hepatitis B Vaccines (1 of 3 - 19+ 3-dose series) 2004 Cervical Cancer Screening: P ap Smear 2006 HPV Vaccines (1 - 3-dose SCD M series) 2012 Depression Screening 04/03/2024 HIV Screening 06/12/2024 Hepatitis C Screening 06/12/2024 Social Influencers of Health Screening 06/12/2024 COVID-19 Vaccine ( - 2024-2 6 season) 2024 Influenza Vaccine (#1) 2024 RSV Immunization Adult Patie nts (1 - 1-dose 75+ series) 2060 HIB Vaccines Aged Out No longer eligi ble based on patient's age to complete this topic Hepatitis A Vaccines Aged Out No long er eligible based on patient's age to complete this topic IPV Vaccines Aged Out No longer eligi ble based on patient's age to complete this topic MMR Vaccines Aged Out No longer eligi ble based on patient's age to complete this topic Meningococcal ACWY Vaccine Aged Out N o longer eligible based on patient's age to complete this topic Meningococcal B Vaccine Aged Out No l onger eligible based on patient's age to complete this topic Pneumococcal Vaccine: Pediat rics (0 to 5 Years) and At-Risk Patients (6 to 49 Years) Aged Out No longer eligible b ased on patient's age to complete this topic RSV Immunization Patients Un misti 20 months Aged Out No longer eligible b ased on patient's age to complete this topic Varicella Vaccines Aged Out No longer eligible based on patient's age to complete this topic Care Teams Manager Council Relationship Specialty Start Date End Date Physician, No Pcp PCP - General 06/11/24
--- OUTSIDE RECORDS SUMMARY | 2025-02-19 13:49 | XMS_ITS | Data Portability ---
Author Organization [place] - [facility] [address] Address [address] [place] [address] Assessment No assessment recorded. Plan of Treatment Reminders Order Date Submit Date Provider Last Modified By Organization Details Last Modified Time Details Appointments None record ed. Lab None record ed. Referral None record ed. Procedures None record ed. Surgeries None record ed. Imaging None record ed. Medication Orders None record ed. Patient TargetsNo targets recorded. Patient InstructionsNo instructions recorded. Reason for Referral None Reported. Medical Equipment None Reported. Vitals Date Recorded Body height Body mass index (BMI) Body weight Oxygen saturation Oxygen saturation in Arterial blood by Pulse oximetry Heart rate Respiratory rate Systolic And Diastolic Provider Name and Address Organization Details Last Updated DateTime 3 162.56 cm 30 kg/m2 41555.6 6 g 97 % 97 % 73 /min 16 /min 138/80 mm[Hg] ALFONSO JARRETT Coker [facility] 3 18:37:14 Social History None recorded. Functional Status None recorded. Mental Status None recorded. Family History Nothing Reported. Medical History No medical history recorded. Gynecological HistoryNo gynecological history recorded. Obstetrics History GPAL:G 0 P 0 0 0 0 Past Encounters Encounter ID Performer Location Encounter Start Date Encounter Closed Date Diagnosis/Indication Diagnosis SNOMED-CT Code Diagnosis ICD10 Code Diagnosis IMO Codes Diagnosis Note [id number] [address] [place] [address] 10/18/2019 10:40:13 10/18/2019 13:50:26 [id number] [place] [address] [place] [address] 10/31/2022 18:08:55 10/31/2022 19:07:33 Health Concerns Section Related Observation LastModified by Organization Detai ls LastModified Time None Recorded Concern Status LastModified by Organization Details LastModified Time None Recorded Advance Directives Directive None Recorded Payers Insurance Date Sequence Insurance Name Policy Number Policy Mario Covered Member ID Mario Member ID Guarantor Name 10/31/2022 OC-ESCREEN Roxana Lopez [id number] Roxana rutledge OBGyn Episode No OBEpisode recorded.
== END 2025-02-18 21:37 | disposition home or self-care (01) ==
PROVIDERS: Physician Assistant Medical; Emergency Provider Emergency Medicine
DX: S20.211A Contusion of right front wall of thorax, initial encounter (principal); I10 Essential (primary) hypertension; D50.9 Iron deficiency anemia, unspecified; Z91.148 Patient's other noncompliance with medication regimen for other reason; Z88.0 Allergy status to penicillin; W01.0XXA Fall on same level from slipping, tripping and stumbling without subsequent striking against object, initial encounter; Y93.9 Activity, unspecified; Y92.410 Unspecified street and highway as the place of occurrence of the external cause; Y99.9 Unspecified external cause status
CPT/HCPCS: 36415; 71101; 80048; 80076; 83735; 84484; 84702; 85025; 93005; 99283; 99284

== ENCOUNTER → 2025-02-18 15:58 | Outpatient (BNV) | payer OTHER, SELFPAY | PROVIDERS: Visit Provider Radiology Diagnostic Radiology | DX: Z04.3 Encounter for examination and observation following other accident (principal) | CPT/HCPCS: 71101 ==

== ENCOUNTER → 2025-02-18 16:00 | Outpatient (BNV) | payer OTHER, SELFPAY | PROVIDERS: Emergency Provider Emergency Medicine; Visit Provider Internal Medicine | DX: R10.9 Unspecified abdominal pain (principal) | CPT/HCPCS: 93010 ==